=== PATIENT | male | born 2000 | race Caucasian/White ===

== ENCOUNTER 2022-06-09 22:32 | Emergency (ER) | payer MEDICAID ==
[2022-06-09 22:40] VITALS: O2SAT 96
[2022-06-09] MEDS ORDERED: TORAdol 30 mg Injection IM ONE (23:21)
[2022-06-09] MEDS ORDERED: TORAdol 30 mg Injection ONE (23:22)
--- NOTE | 2022-06-09 23:27 | ERPHSYRPT ---
- History of Present Illness Source: patient Exam Limitations: no limitations Patient Subjective Stated Complaint: tooth pain/abscess Triage Nursing Assessment: pt ambulated into ER without diff, girlfriend at bedside. Pt c/o pain to left lower jaw, tooth pain. Pt has had the pain x2 days but it's getting worse. Pt has not seen a dentist for 4-5 years. Physician History: 22 yo wm w dental pain x 3 days. Pt states that his pain is 8/10 and worse w chewing. He has very poor dentition. He denies fever/acute trauma. Timing/Duration: abrupt onset ENT Location: dental Prearrival Treatment: no prearrival treatment Modifying Factors: Improves With: other (Worse w chewing) Associated Symptoms: denies symptoms Allergies/Adverse Reactions: No Known Drug Allergies Allergy (Unverified 06/09/22 22:45) Hx Tetanus, Diphtheria Vaccination/Date Given: Yes Hx Influenza Vaccination/Date Given: Yes Hx Pneumococcal Vaccination/Date Given: No Immunizations Up to Date: Yes Travel Risk - International Travel Have you traveled outside of the country in past 3 weeks: No - Coronavirus Screening Are you exhibiting any of the following symptoms?: No Close contact with a COVID-19 positive Pt in past 14-21 Days: No - Vaccine Status Have you recieved a Covid-19 vaccination: No - Review of Systems Constitutional: No Symptoms Eyes: No Symptoms Ears, Nose, & Throat: No Symptoms, Mouth Pain Respiratory: No Symptoms Cardiac: No Symptoms Abdominal/Gastrointestinal: No Symptoms Genitourinary Symptoms: No Symptoms Musculoskeletal: No Symptoms Skin: No Symptoms Neurological: No Symptoms Psychological: No Symptoms Endocrine: No Symptoms Hematologic/Lymphatic: No Symptoms Immunological/Allergic: No Symptoms - Past Medical History Pertinent Past Medical History: Yes Neurological History: No Pertinent History ENT History: No Pertinent History Cardiac History: No Pertinent History Respiratory History: No Pertinent History Endocrine Medical History: No Pertinent History Musculoskeletal History: No Pertinent History GI Medical History: No Pertinent History History: No Pertinent History Psycho-Social History: Attention Deficit Disorder, Bipolar Other Medical History: speech impediment - Past Surgical History Past Surgical History: No - Social History Smoking Status: Former smoker Exposure to second hand smoke: Yes Drug Use: marijuana Patient Lives Alone: No - Nursing Vital Signs Nursing Vital Signs: Initial Vital Signs Temperature 98.3 F 06/09/22 22:39 Pulse Rate 94 H 06/09/22 22:39 Respiratory Rate 17 06/09/22 22:39 Blood Pressure 119/56 06/09/22 22:39 O2 Sat by Pulse Oximetry 96 06/09/22 22:39 Pain Scale Pain Intensity 6 WNL - Physical Exam General Appearance: no apparent distress Eye Exam: bilateral eye: normal inspection, PERRL, EOMI Ear Exam: bilateral ear: auricle normal, canal normal, TM normal Nasal Exam: normal inspection Throat Exam: pharynx normal, dental tenderness (L inferior 1st molar fractured and very TTP), moist mucus membranes, No mandibular swelling, No maxillary swelling, No pharynx swelling, No pharynx tenderness Neck Exam: normal inspection, non-tender, supple, full range of motion, trachea midline Cardiovascular/Respiratory Exam: regular rate/rhythm, heart sounds normal, wheezing (Scattered wheezes B) Abdominal Exam: non-tender, soft Neurologic Exam: alert, oriented x 3, cooperative, yardage control clerk II-XII nml as tested, normal mood/affect, nml cerebellar function, nml station & gait, sensation nml Skin Exam: normal color, warm, dry SpO2 Interpretation: normal SpO2: 96 O2 Delivery: Room Air - Course Nursing assessment & vital signs reviewed: Yes Ordered Tests: Medication Summary Discontinued Medications Generic Name Dose Route Start Last Admin Trade Name Yifan PRN Reason Stop Dose Admin Ketorolac Tromethamine 30 mg 06/09/22 23:21 06/09/22 23:23 Ketorolac Tromethamine 30 Mg/Ml Inj IM 06/09/22 23:22 30 mg STAT ONE Administration Ketorolac Tromethamine Confirm 06/09/22 23:22 Ketorolac Tromethamine 30 Mg/Ml Inj Administered 06/09/22 23:23 Dose 30 mg .ROUTE .STK-MED ONE - Progress Progress Note: 06/09/22 23:30 Nursing note and vital signs reviewed No food or housing insecurities noted 30mg IM Toradol for pain Additional history per significant other Pt has poor dentition and is advised to f/u w a dentist Pt denies tobacco use but does smoke marijuana frequently which most likely is causing mild wheezing. Counseled pt/family regarding: diagnosis, need for follow-up - Departure Departure Disposition: Home Clinical Impression: Pain due to dental caries, Wheezing on auscultation Condition: Good Critical Care Time: No Referrals: DOCTOR,NO FAMILY [Primary Care Provider] - Follow up/PCP as directed Instructions: Tooth Abscess (DC), Tooth Decay, Adult (DC), Dental Pain (DC) Additional Instructions: Follow up with a dentist NOEMI Toradol as needed for pain Penicillin three times a day for 1 week Albuterol inhaler as needed for wheezing Prescriptions: Albuterol Sulfate [Proventil Hfa] 2 puffs IH Q4HPRN PRN #6.7 inh PRN Reason: Shortness Of Breath/Wheezing Penicillin V Potassium 500 mg PO TID 7 Days #21 tablet Ketorolac Trometh 10 mg Tab [TORAdol 10 MG TABLET] 10 mg PO TID PRN PRN #10 tablet PRN Reason: Pain
[2022-06-09 23:33] VITALS: BP 135/60; PULSE 96
== END 2022-06-09 23:38 | disposition home or self-care (01) ==
LOC: ED 22:32
DX: K02.9 Dental caries, unspecified (principal); K08.89 Other specified disorders of teeth and supporting structures; R06.2 Wheezing
CPT/HCPCS: 96372; 99282; J1885